=== PATIENT | male | born 1970 | race African-American/Black ===

== ENCOUNTER 2022-01-03 23:31 | Emergency (ER) | payer MEDICAID ==
[~2022-01-03] VITALS: Ht 177.8 cm; Wt 100.0 kg
[2022-01-03 23:50] VITALS: BP 134/90
[2022-01-04] MEDS ORDERED: HYDR50TA55 MT ×2 (07:37→07:38)
== END 2022-01-04 08:16 | disposition home or self-care (01) ==
LOC: ER 23:31
DX: F41.0 Panic disorder [episodic paroxysmal anxiety] (principal); R94.31 Abnormal electrocardiogram [ECG] [EKG]
CPT/HCPCS: 93005; 99283

== ENCOUNTER 2022-03-01 09:53 | Emergency (ER) | payer MEDICAID ==
[~2022-03-01] VITALS: Ht 182.9 cm; Wt 99.0 kg
[~2022-03-01 09:53] MED LIST: HYDR50TA55 MT
[2022-03-01] MEDS ORDERED: IBUP-2029 MT (12:30)
[2022-03-01] MEDS ORDERED: KETOROLAC 60MG/2ML VIAL IM ONE (12:30)
[2022-03-01] MEDS ORDERED: CEPH500C2 MT (12:30)
[2022-03-01 12:48] VITALS: BP 123/78
== END 2022-03-01 12:48 | disposition home or self-care (01) ==
LOC: ER 09:53
DX: K08.89 Other specified disorders of teeth and supporting structures (principal); R68.84 Jaw pain
CPT/HCPCS: 96372; 99283; J1885